=== PATIENT | male | born 1965 | race Caucasian/White ===

== ENCOUNTER 2020-03-04 13:35 | Outpatient (CLI) | payer MEDICARE, SELFPAY ==
--- NOTE | 2020-03-04 | MR_ITS ---
WS: [id number] MRI HEAD WITH CONTRAST TECHNIQUE: Sagittal T1, T2 axial, T2 axial FLAIR, axial susceptibility weighted imaging, axial diffus ion weighted images, and coronal T2 images were obtained. Pre and post-T1 axial and post T1 coronal i mages. ADC and FSPGR images. CLINICAL INFORMATION: HEADACHE COMPARISON: CT December 15, 2013 and MRI August 07, 2013 FINDINGS: No evidence of restricted diffusion to suggest acute ischemia. Ventricular system and basal cisterns are patent.Moderate patchy supratentorial white matter changes can be seen with hypertension, diabete s, migraine headaches, and small vessel disease. Nothing specific for demyelinating disease. Corpus c allosum appears normal. No significant corpus callosal atrophy. White matter changes slightly progres sed since 2010 and 2012. Normal posterior fossa. Normal vascular flow voids at the skull base. Paranasal sinuses are well aera cami. Partial opacification of the mastoid air cells bilaterally appears chronic and unchanged since t he prior examinations. Normal visualized posterior nasopharynx. Mild parenchymal volume loss minimally progressed since 2010. No hemosiderin on the susceptibility we ighted images. No abnormal gadolinium enhancement. Normal optic chiasm and pituitary infundibulum. No rmal visualized dural venous sinuses. Normal optic chiasm and pituitary infundibulum. Cavernous sinus es and Meckel's cave normal in appearance. Temporal lobes and hippocampal formations are normal in ap pearance. No other significant findings. MR/MR head wo/w con [id number] IMPRESSION: 1. No evidence of restricted diffusion to suggest acute ischemia. 2. Mild to moderate supratentorial white matter changes can be seen with hyper tension, diabetes, small vessel disease, and migraine headaches. 3. White matter changes slightly progressed since 2010 with minimal progressio n of parenchymal volume loss. 4. Temporal lobes and hippocampal formations are normal. 5. No abnormal gadolinium enhancement. 6. Chronic opacification mastoid air cells bilaterally appears unchanged.
== END 2020-03-04 13:36 | disposition home or self-care (01) ==
LOC: RADWPI 13:43
PROVIDERS: Family Provider Family Medicine; PCP Family Medicine; Visit Provider Family Medicine
DX: R51 Headache (principal); R90.82 White matter disease, unspecified
CPT/HCPCS: 70553; A9579

== ENCOUNTER → 2020-07-23 15:36 | Outpatient (BNVA) | payer MEDICARE, SELFPAY | PROVIDERS: Family Provider Family Medicine; PCP Family Medicine; Visit Provider Nurse Practitioner Family | DX: Z11.59 Encounter for screening for other viral diseases (principal); J06.9 Acute upper respiratory infection, unspecified | CPT/HCPCS: 87635 ==

== ENCOUNTER 2021-08-12 17:01 | Emergency (ER) | payer MEDICARE, MEDICAID, SELFPAY ==
[2021-08-12] VITALS (9 sets, daily range): BP systolic 175–212; BP diastolic 76–113; PULSE 56–65; RESP 15–18; TEMP 36.7; O2SAT 96–98; BMI 27.4
--- NOTE | 2021-08-12 17:33 | W.ED.ABDPA2 ---
Documented by User: Stna Renee MD 08/15/21 17:27 HPI - Abdominal Pain General: Chief Complaint: Abdominal Pain Stated Complaint: Pain from Surgery today having stones taken out Time Seen by Provider: 08/12/21 17:33 History of Present Illness: HPI narrative: Mr. Severino is a 56-year-old gentleman with history of recurrent nephrolithiasis who presents emergency department due to postoperative concern. Earlier today, at [facility] in [place] the patient had lithotripsy performed with ureteral stent placed. He reports being in manageable pain postoperatively however when he left his pain started to increase on the drive home. He currently endorses sharp stabbing radiating pain that is severe in intensity and unrelenting. He otherwise denies changes in health prior to this procedure. He denies prior severe pain associated with stent. No other significant exacerbating or alleviating conditions reported. Review of Systems General: Reports: 10 or more systems reviewed and unremarkable except in HPI and below Physical Exam Narrative: EXAM NARRATIVE: GENERAL/CONSTITUTIONAL -mildly ill-appearing. Distress due to pain Eyes - PERRL, no conjunctival injection ENMT - Atraumatic external nose and ears. Moist mucous membranes NECK - supple. trachea midline CARDIOVASCULAR - regular rate and rhythm. RESPIRATORY -clear to auscultation bilaterally. ABDOMEN/GI -tenderness to palpation of the right abdomen. No evidence of rigidity or surgical abdomen. MSK - Extremities without obvious deformity or tenderness to palpation SKIN - Warm, Dry NEURO - alert and appropriately oriented. Moves all extremities equally. Course ED course: - Patient was seen and evaluated by me at bedside - Patient placed on cardiac monitors, IV access obtained - Initial evaluation notable for distress due to pain. -Symptom treatment ordered -Patient care handed off to overnight ED physician Dr. Smalls pending results of laboratory studies and imaging. Plan disposition based on work-up. Vital Signs: Vital signs: Vital Signs Temperature 98.0 F 08/12/21 17:17 Pulse Rate 59 L 08/12/21 20:32 Respiratory Rate 18 08/12/21 20:32 Blood Pressure 179/90 08/12/21 20:32 Pulse Oximetry 98 08/12/21 20:32 MDM - Abdominal Pain Medical Records: Attestation: I reviewed the patient's medical records. Lab Data: Attestation: I reviewed the patient's lab results. Labs: Lab Results 08/12/21 08/12/2108/12/21 17:40 17:40 18:50 WBC 12.0 10^3/uL H 10 ^3/uL (4.0-10.0) RBC 4.87 10^6/uL 10^6 /uL (4.1-5.3) Hgb 14.5 g/dL g/dL (11.7-16.6) Hct 43.0 % % (42.0-52.0) MCV 88.3 fl fl (80-94) MCH 29.8 pg pg (28.0-34.0) MCHC 33.7 g/dL g/dL (30.0-36.0) RDW 12.5 % % (12.1-15.1) Plt Count 281 10^3/cmm 10^3 /cmm (130-400) MPV 10.2 fL fL (7.4-10.4) Neut % (Auto) 91.2 % % Lymph % (Auto) 5.4 % % Morrill % (Auto) 2.8 % % Eos % (Auto) 0.0 % % Baso % (Auto) 0.2 % % Neut # (Auto) 10.89 10^3/uL H 1 0^3/uL (1.8-7.7) Lymph # (Auto) 0.7 10^3/uL L 10^ 3/uL (0.8-4.8) Morrill # (Auto) 0.3 10^3/uL 10^3/ uL (0.2-0.9) Eos # (Auto) 0.0 10^3/uL 10^3/ uL (0.0-0.8) Baso # (Auto) 0.0 10^3/uL 10^3/ uL (0.0-0.1) Nucleated RBC % (a uto) 0 % % Nucleated RBCs # 0.0 /100WBC /100W BC Sodium 141 mmol/L mmol/L (136-145) Potassium 3.7 mmol/L mmol/L (3.5-5.1) Chloride 99 mmol/L mmol/L (98-107) Carbon Dioxide 29 mmol/L mmol/L (22-29) Anion Gap 16.7 (5-19) BUN 13 mg/dL mg/dL (6-20) Creatinine 0.6 mg/dL L mg/dL (0.7-1.2) GFR Calculation 140.4 mL/min H mL /min (90-130) Glucose 121 mg/dL H mg/dL (65-115) Calculated Osmolal ity 293 mOsm/kg mOsm/ kg (285-295) Calcium 9.2 mg/dL mg/dL (8.5-10.5) Total Bilirubin 0.4 mg/dL mg/dL (0.15-1.2) AST 17 U/L U/L (0-40) ALT 14 U/L U/L (0-41) Alkaline Phosphata se 55 IU/L IU/L (40-130) Total Protein 7.2 g/dL g/dL (6.6-8.7) Albumin 4.6 g/dL g/dL (3.5-5.2) Globulin 2.6 g/dL g/dL (1.3-4.6) Urine Color Red (Yellow) Urine Appearance Cloudy (CLEAR) Urine pH 8 H (5-7) Ur Specific Gravit y 1.010 (1.005-1.030) Urine Protein 2+ H (Negative) Urine Glucose (UA) 1+ H (Normal) Urine Ketones Negative (Negative) Urine Blood 3+ H (Negative) Urine Nitrate Positive H (Negative) Urine Bilirubin Neg (Negative) Prot Sulfosalicyli c Acd Negative (Negative) Urine Urobilinogen Norm mg/dL mg/dL (Negative) Ur Leukocyte Giovanna ase 1+ H (Negative) Urine RBC Too numerous to c nt /hpf H /hpf (0-2) Urine WBC 0-4 /hpf H /hpf (0-5) Ur Squamous Epith Cells 0-4 /hpf H /hpf (0-5) Amorphous Sediment Not Reportable Urine Bacteria Trace /hpf /hpf (NONE) Urine Mucus Trace /hpf /hpf Discharge Plan Discharge Patient Disposition: Home Clinical Impression: Acute right flank pain Condition: Stable Prescriptions: No Action Unable to Assess RF: 0 Discharge Orders: Discharge ED (Routine); Ordered 08/12/21 Ordered By: Mary Jane Smalls Referrals: Keyanna Reich MD [Primary Care Provider] - Discharge Diet: Advance as tolerated Discharge Activity: Resume usual activity Patient Instructions: Flank Pain (ED), Opioid Safety Coding Level of Care Code ED Diplomatic Courier for Chg Fwd Documented by User: Mary Jane Smalls MD 08/12/21 20:09 HPI - Abdominal Pain General: Chief Complaint: Abdominal Pain Stated Complaint: Pain from Surgery today having stones taken out Time Seen by Provider: 08/12/21 17:33 Course Vital Signs: Vital signs: Vital Signs Temperature 98.0 F 08/12/21 17:17 Pulse Rate 59 L 08/12/21 20:32 Respiratory Rate 18 08/12/21 20:32 Blood Pressure 179/90 08/12/21 20:32 Pulse Oximetry 98 08/12/21 20:32 MDM - Abdominal Pain MDM Narrative: Medical decision making narrative: Patient presents with flank pain after a cystoscopy with stent placement today. He is well-appearing here his pain is much improved and is resolved after pain meds. I did speak to the urologist who would perform the procedure went over the lab findings and CT findings and he feels he is stable for discharge will follow him up next week patient is already on antibiotics and pain meds I informed him if his pain worsens or he develops fever he is to return immediately. He understands agrees to plan. Lab Data: Labs: Lab Results 08/12/21 08/12/21 08/12/21 17:40 17:40 18:50 WBC 12.0 10^3/uL H 10 ^3/uL (4.0-10.0) RBC 4.87 10^6/uL 10^6 /uL (4.1-5.3) Hgb 14.5 g/dL g/dL (11.7-16.6) Hct 43.0 % % (42.0-52.0) MCV 88.3 fl fl (80-94) MCH 29.8 pg pg (28.0-34.0) MCHC 33.7 g/dL g/dL (30.0-36.0) RDW 12.5 % % (12.1-15.1) Plt Count 281 10^3/cmm 10^3 /cmm (130-400) MPV 10.2 fL fL (7.4-10.4) Neut % (Auto) 91.2 % % Lymph % (Auto) 5.4 % % Morrill % (Auto) 2.8 % % Eos % (Auto) 0.0 % % Baso % (Auto) 0.2 % % Neut # (Auto) 10.89 10^3/uL H 1 0^3/uL (1.8-7.7) Lymph # (Auto) 0.7 10^3/uL L 10^ 3/uL (0.8-4.8) Morrill # (Auto) 0.3 10^3/uL 10^3/ uL (0.2-0.9) Eos # (Auto) 0.0 10^3/uL 10^3/ uL (0.0-0.8) Baso # (Auto) 0.0 10^3/uL 10^3/ uL (0.0-0.1) Nucleated RBC % (a uto) 0 % % Nucleated RBCs # 0.0 /100WBC /100W BC Sodium 141 mmol/L mmol/L (136-145) Potassium 3.7 mmol/L mmol/L (3.5-5.1) Chloride 99 mmol/L mmol/L (98-107) Carbon Dioxide 29 mmol/L mmol/L (22-29) Anion Gap 16.7 (5-19) BUN 13 mg/dL mg/dL (6-20) Creatinine 0.6 mg/dL L mg/dL (0.7-1.2) GFR Calculation 140.4 mL/min H mL /min (90-130) Glucose 121 mg/dL H mg/dL (65-115) Calculated Osmolal ity 293 mOsm/kg mOsm/ kg (285-295) Calcium 9.2 mg/dL mg/dL (8.5-10.5) Total Bilirubin 0.4 mg/dL mg/dL (0.15-1.2) AST 17 U/L U/L (0-40) ALT 14 U/L U/L (0-41) Alkaline Phosphata se 55 IU/L IU/L (40-130) Total Protein 7.2 g/dL g/dL (6.6-8.7) Albumin 4.6 g/dL g/dL (3.5-5.2) Globulin 2.6 g/dL g/dL (1.3-4.6) Urine Color Red (Yellow) Urine Appearance Cloudy (CLEAR) Urine pH 8 H (5-7) Ur Specific Gravit y 1.010 (1.005-1.030) Urine Protein 2+ H (Negative) Urine Glucose (UA) 1+ H (Normal) Urine Ketones Negative (Negative) Urine Blood 3+ H (Negative) Urine Nitrate Positive H (Negative) Urine Bilirubin Neg (Negative) Prot Sulfosalicyli c Acd Negative (Negative) Urine Urobilinogen Norm mg/dL mg/dL (Negative) Ur Leukocyte Giovanna ase 1+ H (Negative) Urine RBC Too numerous to c nt /hpf H /hpf (0-2) Urine WBC 0-4 /hpf H /hpf (0-5) Ur Squamous Epith Cells 0-4 /hpf H /hpf (0-5) Amorphous Sediment Not Reportable Urine Bacteria Trace /hpf /hpf (NONE) Urine Mucus Trace /hpf /hpf Imaging Data ^: CT Abd/Pel: Attestation: I personally reviewed and interpreted this imaging study as follows: Radiologist's impression: [address] [address] [address] Scan Report Signed Patient: Rodolfo Severino Unit #: [id number] : 1965 Age/Sex: 56 / M ADM Date: 08/12/21 Loc: ER Room/Bed: Attending Dr: Ordering Provider/Ordering MD: Stan Renee MD Date of Service: 08/12/21 Procedure(s): CT abdomen pelvis con [id number] Accession Number(s): [id number] Report Number: [id number] PROCEDURE INFORMATION: Exam: CT Abdomen And Pelvis Without Contrast Exam date and time: 08/12/2021 5:37 PM Age: 56 years old Clinical indication: Abdominal pain; Prior surgery; Surgery type: Bilat hip, spine, RT ureteral stent placed today, appy; Additional info: Stent placed today, severe pain, eval for complication TECHNIQUE: Imaging protocol: Computed tomography of the abdomen and pelvis without contrast. Radiation optimization: All CT scans at this facility use at least one of these dose optimization techniques: automated exposure control; mA and/or kV adjustment per patient size (includes targeted exams where dose is matched to clinical indication); or iterative reconstruction. COMPARISON: CT Abdomen/Pelvis Renal [id number] 10/26/2017 4:27 PM RADIATION DOSE METRICS: Total DLP (mGy-cm): 1291.65 FINDINGS: Liver: Normal. No mass. Gallbladder and bile ducts: Normal. No calcified stones. No ductal dilation. Pancreas: Normal. No ductal dilation. Spleen: Normal. No splenomegaly. Adrenal glands: Normal. No mass. Kidneys and ureters: Right ureteral stent seen in place with some apparent blood products seen about the distal portion of the stent in the urinary bladder and moderate hydronephrosis and hydroureter. Additionally some air is seen in the right renal collecting system, perhaps related to stent placement, infection would also be a consideration. Right perinephric and periureteral edema is also present, perhaps reflecting underlying infection or related to stent placement. Bilateral nonobstructing renal calyceal stones. Right kidney lower pole 12 mm probable hemorrhagic cyst. Several left kidney cysts Stomach and bowel: Unremarkable. No obstruction. No mucosal thickening. Appendix: No evidence of appendicitis. Intraperitoneal space: Unremarkable. No free air. No significant fluid collection. Vasculature: Unremarkable. No abdominal aortic aneurysm. Lymph nodes: Unremarkable. No enlarged lymph nodes. Urinary bladder: Unremarkable as visualized. Reproductive: Unremarkable as visualized. Bones/joints: Lumbar spine and sacroiliac joint surgical hardware. Soft tissues: Unremarkable. Other findings: Constipation. CT/CT abdomen pelvis wo con [id number] IMPRESSION: 1. Right ureteral stent seen in place with some apparent blood products seen about the distal portion of the stent in the urinary bladder and moderate hydronephrosis and hydroureter. Additionally some air is seen in the right renal collecting system, perhaps related to stent placement, infection would also be a consideration. 2. Right perinephric and periureteral edema is also present, perhaps reflecting underlying infection or related to stent placement. 3. Bilateral nonobstructing renal calyceal stones. 4. Right kidney lower pole 12 mm probable hemorrhagic cyst. 5. Several left kidney cysts 6. Constipation. 7. Lumbar spine and sacroiliac joint surgical hardware. COMMENTS: Consistent with the [employer]'s Incidental Findings Committee white paper (J Am Ata Radiol 2018): Any incidental renal lesion less than 1 cm or classified as too small to characterize, or any incidental cystic renal lesion characterized as simple-appearing, is likely benign. No follow-up imaging is recommended for these lesions per consensus recommendations based on imaging criteria. Radiation Dose CTDIVOL = (mGy): DLP = 1291.65 (mGy-cm) Dictated By: Rodolfo Cohen MD Signed By: Rodolfo Cohen MD Signed Date/Time: 08/12/211844 DD/ 033 Discharge Plan Discharge Patient Disposition: Home Clinical Impression: Acute right flank pain Condition: Stable Prescriptions: No Action Unable to Assess RF: 0 Discharge Orders: Discharge ED (Routine); Ordered 08/12/21 Ordered By: Mary Jane Smalls Referrals: Keyanna Reich MD [Primary Care Provider] - Discharge Diet: Advance as tolerated Discharge Activity: Resume usual activity Patient Instructions: Flank Pain (ED), Opioid Safety Coding Level of Care Code ED Diplomatic Courier for Maria Dolores Mckeon
--- NOTE | 2021-08-12 17:37 | CTR_ITS ---
PROCEDURE INFORMATION: Exam: CT Abdomen And Pelvis Without Contrast Exam date and time: 08/12/2021 5:37 PM Age: 56 years old Clinical indication: Abdominal pain; Prior surgery; Surgery type: Bilat hip, spine, RT ureteral stent placed today, appy; Additional info: Stent placed today, severe pain, eval for complication TECHNIQUE: Imaging protocol: Computed tomography of the abdomen and pelvis without contrast. Radiation optimization: All CT scans at this facility use at least one of these dose optimization techniques: automated exposure control; mA and/or kV adjustment per patient size (includes targeted exams where dose is matched to clinical indication); or iterative reconstruction. COMPARISON: CT Abdomen/Pelvis Renal [id number] 10/26/2017 4:27 PM RADIATION DOSE METRICS: Total DLP (mGy-cm): 1291.65 FINDINGS: Liver: Normal. No mass. Gallbladder and bile ducts: Normal. No calcified stones. No ductal dilation. Pancreas: Normal. No ductal dilation. Spleen: Normal. No splenomegaly. Adrenal glands: Normal. No mass. Kidneys and ureters: Right ureteral stent seen in place with some apparent blood products seen about the distal portion of the stent in the urinary bladder and moderate hydronephrosis and hydroureter. Additionally some air is seen in the right renal collecting system, perhaps related to stent placement, infection would also be a consideration. Right perinephric and periureteral edema is also present, perhaps reflecting underlying infection or related to stent placement. Bilateral nonobstructing renal calyceal stones. Right kidney lower pole 12 mm probable hemorrhagic cyst. Several left kidney cysts Stomach and bowel: Unremarkable. No obstruction. No mucosal thickening. Appendix: No evidence of appendicitis. Intraperitoneal space: Unremarkable. No free air. No significant fluid collection. Vasculature: Unremarkable. No abdominal aortic aneurysm. Lymph nodes: Unremarkable. No enlarged lymph nodes. Urinary bladder: Unremarkable as visualized. Reproductive: Unremarkable as visualized. Bones/joints: Lumbar spine and sacroiliac joint surgical hardware. Soft tissues: Unremarkable. Other findings: Constipation. CT/CT abdomen pelvis wo con [id number] IMPRESSION: 1. Right ureteral stent seen in place with some apparent blood products seen about the distal portion of the stent in the urinary bladder and moderate hydronephrosis and hydroureter. Additionally some air is seen in the right renal collecting system, perhaps related to stent placement, infection would also be a consideration. 2. Right perinephric and periureteral edema is also present, perhaps reflecting underlying infection or related to stent placement. 3. Bilateral nonobstructing renal calyceal stones. 4. Right kidney lower pole 12 mm probable hemorrhagic cyst. 5. Several left kidney cysts 6. Constipation. 7. Lumbar spine and sacroiliac joint surgical hardware. COMMENTS: Consistent with the [employer]'s Incidental Findings Committee white paper (J Am Ata Radiol 2018): Any incidental renal lesion less than 1 cm or classified as too small to characterize, or any incidental cystic renal lesion characterized as simple-appearing, is likely benign. No follow-up imaging is recommended for these lesions per consensus recommendations based on imaging criteria. Radiation Dose CTDIVOL = (mGy): DLP = 1291.65 (mGy-cm)
[2021-08-12] MEDS: HYDROmorphone 1 mg/mL INJ 1 mL IVP ×2 (17:45→19:06)
[2021-08-12] MEDS: ketorolac 30 mg/mL INJ 15 MG IVP ×2 (17:46→20:16)
[2021-08-12] MEDS: ondansetron 2 mg/ML SDV 2 mL 4 MG IVP (17:46)
[2021-08-12 19:11] LABS: Basophils % 0.2 %; Hemoglobin 14.5 g/dL (11.7-16.6); Lymphocytes # 0.7 10^3/uL (0.8-4.8); Lymphocytes % 5.4 %; Mean Corpuscular HGB Conc 33.7 g/dL (30.0-36.0); Mean Corpuscular Hemoglobin 29.8 pg (28.0-34.0); Mean Corpuscular Volume 88.3 fl (80-94); Mean Platelet Volume 10.2 fL (7.4-10.4); Monocytes # 0.3 10^3/uL (0.2-0.9); Monocytes % 2.8 %; Neutrophils # 10.89 10^3/uL (1.8-7.7); Neutrophils % 91.2 %; Nucleated Red Blood Cells % 0 %; Platelet Count 281 10^3/cmm (130-400); Red Blood Count 4.87 10^6/uL (4.1-5.3); Red Cell Distribution Width 12.5 % (12.1-15.1)
[2021-08-12 19:22] LABS: Alanine Aminotransferase 14 U/L (0-41); Albumin Level 4.6 g/dL (3.5-5.2); Alkaline Phosphatase 55 IU/L (40-130); Anion Gap 16.7 (5-19); Aspartate Amino Transferase 17 U/L (0-40); Blood Urea Nitrogen 13 mg/dL (6-20); Calcium 9.2 mg/dL (8.5-10.5); Carbon Dioxide 29 mmol/L (22-29); Chloride 99 mmol/L (98-107); Globulin 2.6 g/dL (1.3-4.6); Glomerular Filtration Rate 140.4 mL/min (90-130); Glucose 121 mg/dL (65-115); Osmolality Calculated 293 mOsm/kg (285-295); Potassium 3.7 mmol/L (3.5-5.1); Sodium 141 mmol/L (136-145); Total Bilirubin 0.4 mg/dL (0.15-1.2); Total Protein 7.2 g/dL (6.6-8.7)
[2021-08-12 19:30] LABS: Urine Appearance Cloudy (CLEAR); Urine Color Red (Yellow)
[2021-08-12 19:31] LABS: Add Urine Microscopic? YES; Bilirubin Urine Neg (Negative); Blood Urine 3+ (Negative); Glucose Urine UA 1+ (Normal); Ketones Urine Negative (Negative); Leukocyte Esterase Urine 1+ (Negative); Nitrate Urine Positive (Negative); Protein Urine 2+ (Negative); Sulfosalicylic Acid Urine Negative (Negative); Urobilinogen Urine Norm (Negative); pH Urine 8 (5-7)
[2021-08-12 19:32] LABS: RBC Urine TOO NUMEROUS TO CNT /hpf (0-2); Squamous Epithelial Cell Urine 0-4 /hpf (0-5); WBC Urine 0-4 /hpf (0-5)
[2021-08-12 19:33] LABS: Add Urine Culture? No; Bacteria Urine TRACE /hpf; Mucus Urine TRACE /hpf
== END 2021-08-12 20:44 | disposition home or self-care (01) ==
PROVIDERS: Emergency Medicine; Emergency Provider Emergency Medicine; PCP Family Medicine
DX: R10.9 Unspecified abdominal pain (principal); Z87.442 Personal history of urinary calculi
CPT/HCPCS: 74176; 80053; 81001; 85025; 96374; 96375; 96376; 99284; J1170; J1885; J2405

== ENCOUNTER 2021-10-05 07:52 | Outpatient (CLI) | payer MEDICARE, MEDICAID, SELFPAY ==
--- NOTE | 2021-10-05 08:08 | MR_ITS ---
WS: [id number] MRI CERVICAL SPINE NONCONTRAST HISTORY: CHRONIC NECK PAIN/CHRONIC HEADACHES COMPARISON: MRI 01/28/[address] 07/11/2017 Technique: Multiplanar, multisequence noncontrast imaging of the cervical spine. Very mild straightening of the normal cervical lordosis. Prior anterior cervical fusion with interbod y spacer at C6-7. No fracture or marrow edema. Signal within the cervical cord is normal. Visualized posterior fossa is unremarkable. Craniocervical junction, C1 and C2 relationship, odontoid process and soft tissues are normal. C2-C3: Normal. C3-C4: Moderate osteophytic ridging around the vertebral bodies and annular disc bulging. No focal pr otrusion. There is mild deformity and effacement of the ventral thecal sac. Small amount of CSF remai ns surrounding the thecal sac. There is posterior displacement of the RIGHT nerve roots due to disc a nd osteophyte. Mild central and LEFT foraminal stenosis with moderate RIGHT foraminal stenosis. C4-C5: Mild osteophytic ridging with no disc protrusion. Mild bilateral foraminal stenosis and mild f acet arthritis. C5-C6: Disc level is partially obscured by artifact from the fusion hardware. There is at least mild disc bulging and osteophytic ridging. Mild central and foraminal stenosis. Disc protrusions and the f oramina cannot be excluded. Mild facet arthritis. C6-C7: Artifact continues partially obscuring the disc level. Mild central and foraminal stenosis. Di sc protrusions and the foramina cannot be excluded. C7-T1: Normal. Paraspinal soft tissue are normal. MR/MR cervical spin wo con* [id number] IMPRESSION: 1. Prior anterior cervical fusion with interbody spacer at the C6-7 level. Baljinder madeline is obscuring detail at the C5-6 and C6-7 disc levels. 2. Moderate osteophytic ridging at C3-4 encroaching upon the ventral thecal sa c resulting in mild central and LEFT foraminal stenosis and moderate RIGHT fora abdias stenosis predominantly due to bony hypertrophy. 3. No high-grade stenosis. No focal disc protrusions are identified.
== END 2021-10-05 07:53 | disposition home or self-care (01) ==
PROVIDERS: PCP Family Medicine; Visit Provider Family Medicine
DX: M54.2 Cervicalgia (principal); R51.9 Headache, unspecified; M25.78 Osteophyte, vertebrae; M43.22 Fusion of spine, cervical region
CPT/HCPCS: 72141

== ENCOUNTER 2021-10-08 09:25 | Outpatient (CLI) | payer MEDICARE, MEDICAID, SELFPAY ==
--- NOTE | 2021-10-08 09:49 | MR_ITS ---
WS: [id number] MRI left shoulder, 10/08/2021 Clinical Data: LEFT SHOULDER PAIN Comparison: None. Findings: There is slight increased signal in the substance of the rotator cuff which could indicate a partial tear. No retraction of the supraspinatus is seen. Acromioclavicular joint shows mild osteoarthritis w ith no impingement. The glenoid labrum is intact with no tear or displacement. The biceps tendon resides within the bicipital groove and there is no displacement evidence of tendin itis or fluid in the tendon sheath. MR/MR shoulder LT con* [id number] Impression: 1. Slight increase in signal and substance of the left rotator cuff cuff which could indicate a partial tear. 2. Osteoarthritis of the left AC joint.
== END 2021-10-08 09:26 | disposition home or self-care (01) ==
PROVIDERS: PCP Family Medicine; Visit Provider Family Medicine
DX: M19.012 Primary osteoarthritis, left shoulder (principal)
CPT/HCPCS: 73221

== ENCOUNTER → 2021-12-13 17:04 | Outpatient (BNVA) | payer MEDICARE, MEDICAID, SELFPAY | PROVIDERS: PCP Family Medicine; Visit Provider Surgery | DX: Z01.818 Encounter for other preprocedural examination (principal) | CPT/HCPCS: 87635 ==

== ENCOUNTER → 2022-01-11 15:29 | Outpatient (BNVA) | payer MEDICARE, MEDICAID, SELFPAY | PROVIDERS: PCP Family Medicine; Visit Provider Surgery | DX: Z01.818 Encounter for other preprocedural examination (principal); Z20.822 Contact with and (suspected) exposure to COVID-19 | CPT/HCPCS: 87635 ==

== ENCOUNTER 2022-01-14 08:00 | Day surgery (SDC) | payer MEDICARE, MEDICAID, SELFPAY ==
[2021-12-14 11:10] VITALS: BMI 30.7
[2022-01-12 10:20] VITALS: BMI 30.7
[2022-01-14 08:30] VITALS: BP 167/102; PULSE 65; RESP 18; TEMP 36.4; O2SAT 100
[2022-01-14] MEDS: sodium chloride 0.9% 1,000 ML 30 ML IV (08:37)
--- NOTE | 2022-01-14 08:37 | ANES.PREANE2 ---
Pre-Anesthetic Assessment Height/Weight: Height 1.65 m Weight 83.915 kg Temp Pulse Resp BP Pulse Ox 97.6 F 65 18 167/102 100 01/14/22 08:30 01/14/22 08:30 01/14/22 08:30 01/14/22 08:30 01/14/22 08:30 Preop Diagnosis: History of colon polyps, colon cancer and blood in stool Operation Date: 12/16/21 15:15 Proposed Procedures p Colonoscopy 24702 Z86.010 K92.1(Not Applicable) - Danny Hugo MD Operation Date: 01/14/22 09:30 Proposed Procedures p Colonoscopy(Not Applicable) - Danny Hugo MD Familial anesthetic complications: None Was Beta James taken within 24 hours: N/A Was Clonidine taken within 24 hours: N/A Last intake: Intake Last Liquid Date 01/13/22 Last Liquid Time 23:00 Last Solid Date 01/12/22 Last Solid Time 15:00 Social No alcohol and No tobacco Exam alert, oriented x 3, clear to auscultation bilaterally and regular rate & rhythm Airway Submandibular: within normal limits Cervical ROM: within normal limits Mallampati: Class II Dentition: chipped Comments: Comments: Missing several Metabolic Morbid Obesity Musc/skel Lower Back Pain Chronic pain/opioid Anesthetic Plan ASA status: 3 Anesthesia: MAC Medications/Allergies Home Medications Medication Instructions Recorded Confirmed Last Taken Type cholecalciferol (vitamin D3) 25 25 mcg PO DAILY 09/27/21 01/12/22 Unknown History mcg (1,000 unit) capsule cyclobenzaprine 5 mg tablet 5 mg PO TID PRN 09/27/21 01/12/22 Unknown History fentanyl 12 mcg/hr transdermal 1 patch TRANSDERMAL Q72H 09/27/21 01/12/22 Unknown History patch gabapentin 100 mg capsule 100 mg PO DAILY 09/27/21 01/12/22 Unknown History ondansetron HCl 4 mg tablet 4 mg PO Q8H PRN 09/27/21 01/12/22 Unknown History (Zofran) oxycodone-acetaminophen 2.5 mg-325 1 tab PO Q8H PRN 09/27/21 01/12/22 Unknown History mg tablet (Percocet) sumatriptan succinate 25 mg tablet 25 mg PO Q2H PRN 09/27/21 01/12/22 Unknown History tramadol 50 mg tablet 50 mg PO Q6H PRN 09/27/21 01/12/22 Unknown History Allergies Allergy/AdvReac Type Severity Reaction Status Date / Time codeine Allergy ADR-Itching Verified 12/14/21 11:00 Current Medications Generic Name Dose Route Start Last Admin Trade Name Freq PRN Reason Stop Dose Admin Sodium Chloride 1,000 mls @ 30 mls/hr 01/14/22 08:15 01/14/22 08:37 Sodium Chloride 0.9% IV 01/15/22 08:14 30 mls/hr .Q24H BONITA Administration PFSH Anesthesia Medical History Family history of colon cancer in mother Family History Other CAD (coronary artery disease) Cancer Hypertension Denies family history of Diabetes Dementia Chronic kidney disease (CKD) Lung disease Stroke Social History Smoking and tobacco status: never smoked Second hand smoke exposure: No Alcohol intake: never Lives independently: Yes Household members: spouse and children Marital status: Data Anesthesia Cardiac Studies: No Data to Display
--- NOTE | 2022-01-14 09:46 | P.HP_ITS ---
Same Day Surgery H&P Indication for Procedure/HPI DATE OF PROCEDURE: January 14, 2022 CHIEF COMPLAINT/INDICATIONFOR SURGICAL PROCEDURE: Colon polyps PREOP DIAGNOSIS: History of colon polyps, colon cancer and blood in stool PLANNED PROCEDURE: Operation Date: 12/16/21 15:15 Proposed Procedures p Colonoscopy 31290 Z86.010 K92.1(Not Applicable) - Danny Hugo MD Operation Date: 01/14/22 09:30 Proposed Procedures p Colonoscopy(Not Applicable) - Danny Hugo MD 09/27/21 This is a pleasant 56 years old gentleman referred to my practice with history of colon polyps,he did have a colonoscopy before 5 years and he reports that he has intermittent bleeding per rectum.? Also patient gives history of colon cancer per his mom that she at the age of 7272 years old.? Patient denies history of nonintentional weight loss.? He is referred to my practice for surveillance colonoscopy 01/14/22 Patient comes today for patient comes today for surveillance colonoscopy ROS All systems all systems have been reviewed negative except as per the above or per problem Medications/Allergies* Home Medications Medication Instructions Recorded Confirmed Type cholecalciferol (vitamin D3) 25 25 mcg PO DAILY 09/27/21 01/12/22 History mcg (1,000 unit) capsule cyclobenzaprine 5 mg tablet 5 mg PO TID PRN 09/27/21 01/12/22 History fentanyl 12 mcg/hr transdermal 1 patch TRANSDERMAL Q72H 09/27/21 01/12/22 History patch gabapentin 100 mg capsule 100 mg PO DAILY 09/27/21 01/12/22 History ondansetron HCl 4 mg tablet 4 mg PO Q8H PRN 09/27/21 01/12/22 History (Zofran) oxycodone-acetaminophen 2.5 mg-325 1 tab PO Q8H PRN 09/27/21 01/12/22 History mg tablet (Percocet) sumatriptan succinate 25 mg tablet 25 mg PO Q2H PRN 09/27/21 01/12/22 History tramadol 50 mg tablet 50 mg PO Q6H PRN 09/27/21 01/12/22 History Allergies/Adverse Reactions Allergy/AdvReac Type Severity Reaction Status Date / Time codeine Allergy ADR-Itching Verified 01/14/22 09:47 Current Medications: Generic Name Dose Route Start Last Admin Trade Name Freq PRN Reason Stop Dose Admin Sodium Chloride 1,000 mls @ 30 mls/hr 01/14/22 08:15 01/14/22 08:37 Sodium Chloride 0.9% IV 01/15/22 08:14 30 mls/hr .Q24H BONITA Administration Pertinent History/Comorbid Conditions* Medical History (Updated 09/27/21 @ 09:55 by Danny Hugo MD) Family history of colon cancer in mother Family History (Updated 09/27/21 @ 09:08 by Farnaz Dudley) CAD (coronary artery disease) Cancer Hypertension Denies family history of Diabetes Dementia Chronic kidney disease (CKD) Lung disease Stroke Social History Smoking and tobacco status: never smoked Second hand smoke exposure: No Alcohol intake: never Lives independently: Yes Household members: spouse and children Marital status: Pertinent Exam Findings alert, oriented x 3, regular rate & rhythm and procedure specific exam findings (Abdominal examination nontender nondistended soft) Recommendations Surgery/Procedure today (Surveillance colonoscopy ) Coding Level of Care Code Acute Atmospheric Sciences Professor for Maria Dolores Mckeon
[2022-01-14 10:14] VITALS: BP 100/62; PULSE 65; RESP 16; TEMP 36.1; O2SAT 98
[2022-01-14 10:27] VITALS: BP 101/74; PULSE 61; RESP 16; TEMP 36.2; O2SAT 100
[2022-01-14 10:40] VITALS: BP 133/77; PULSE 53; RESP 18; O2SAT 99
--- NOTE | 2022-01-14 17:38 | ANE.PACU2 ---
Inpatient post-anesthesia follow up: Airway intact: Yes Vital signs: Temperature 97.1 F Pulse Rate 53 Respiratory Rate 18 Blood Pressure 133/77 Pulse Oximetry 99 Oxygen Delivery Me thod Room Air Oxygen Flow Rate Fraction of Inspir ed Oxygen Hydration adequate: Yes Nausea and vomiting: No Pain level: 1 Mental status: Baseline
== END 2022-01-14 10:55 | disposition home or self-care (01) ==
PROVIDERS: PCP Family Medicine; Visit Provider Surgery
PROC: 0DJD8ZZ Inspection of Lower Intestinal Tract, Via Natural or Artificial Opening Endoscopic (ICD-10-PCS; CPT 45378; principal; 2022-01-14 09:30)
DX: K92.1 Melena (principal); Z86.010 Personal history of colon polyps; D12.0 Benign neoplasm of cecum; E66.01 Morbid (severe) obesity due to excess calories; Z68.30 Body mass index [BMI] 30.0-30.9, adult; Z82.49 Family history of ischemic heart disease and other diseases of the circulatory system
CPT/HCPCS: 45385; 88305; J2704; J7030

== ENCOUNTER → 2022-01-31 10:26 | Outpatient (BNVA) | payer MEDICARE, MEDICAID, SELFPAY | PROVIDERS: PCP Family Medicine; Visit Provider Surgery | DX: Z09 Encounter for follow-up examination after completed treatment for conditions other than malignant neoplasm (principal); K63.5 Polyp of colon | CPT/HCPCS: 99213 ==

== ENCOUNTER 2022-10-20 08:26 | Outpatient (CLI) | payer MEDICARE, MEDICAID, SELFPAY ==
--- NOTE | 2022-10-20 | ECG_ITS ---
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 Interpretive Statements NAME OF STUDY: Exercise/Sestamibi/Sestamibi Stress Test INDICATION: Chest Pain SURGICAL CLEARANCE RESULTS TO Ric SANCHEZ PROCEDURE: The baseline electrocardiogram showed sinus bradycardia with diffuse nonspecific T wave changes. Left axis deviation.. At the baseline, the patient's blood pressure was 174/92 mm Hg with a heart rate of 51. The patient exercised for 12 minutes on a Ankit protocol. Patient attained a maximum heart rate of 146 beats per minute(88% of the maximum predicted heart rate) with a blood pressure at the peak exercise of 256/106 mm Hg. The EKG at the peak exercise revealed no significant changes. Patient did not have any chest pain or any significant arrhythmis with the exercise Sestamibi was injected 1 minute prior to the peak exercise During the recovery phase, there were no new changes. Blood pressure at the end of the recovery phase was 172/81 mm Hg with a heart rate of 68 per minute. CONCLUSION: 1. No significant EKG changes with the treadmill exercise 2. No exercise-induced chest pain or cardiac arrhythmia 3. Good exercise tolerance, attained a maximum of 13.5 METs 4. Hypertensive response to exercise 5. Sestamibi/Sestamibi perfusion results pending; see separate report. Electronically Signed On 10-20-2022 17:51:16 REGULATORY AFFAIRS INTERN by Danita Hsu M.D. [id number]
[2022-10-20 08:33] VITALS: BMI 30.7
--- NOTE | 2022-10-20 08:38 | NMCV_ITS ---
NM lyly perf SPECT r/s* [id number] Rodolfo Severino Age: 57 Gender: M : 1965 Exam Date: 10/20/2022 08:38 Ordering Phys: Keyanna Reich MD Technologist: ANIYA Muhammad Exam Location: [facility] Indications: CHEST PAIN; PRE OP FOR Monday10/25/22 STRESS TEST Please see separate stress test report in [facility] for full findings IMAGE PROTOCOL Rest/Stress 1 Exercise Day Radiopharmaceutical Dose (mCi) Administration Site Administered by Rest: Tc-99m 10.7 IV ANIYA Ceron Sestamibi Stress:Tc-99m 32.5 IV ANIYA Ceron Sestamihermes Rest: 20-Oct-2022 60 Discovery 630 Stress: 20-Oct-2022 30 Discovery 630 Radiopharmaceutical was injected at 85 % maximum heart rate. Images obtained in supine and prone position. SPECT RESULTS Technical Quality: Excellent Raw Data Analysis: Normal Image Corrections: No attenuation or motion correction applied Summed Stress Score: 3 Summed Rest Score: 2 Summed Difference Score: 1 PERFUSION FINDINGS Small area of slightly decreased tracer uptake was noted in the mid inferior and apical lateral regions. Some reversibility was noted in the mid inferior region. FUNCTIONAL RESULTS (calculated via Gated SPECT) Stress Image LV EF (%): 60 Stress EDV (mL):118 TID: 0.88 Stress ESV (mL):47 FUNCTIONAL FINDINGS: Segmental wall motion analysis revealing no gross wall motion normalities IMPRESSIONS 1. Myocardial perfusion imaging revealing small area of decreased tracer uptake in the mid inferior region with some reversibility, suggesting myocardial scarring with ischemia in the distribution of the right coronary artery. Small area of persistent decreased tracer uptake in the apical lateral region suggesting myocardial scarring versus attenuation artifact 2. Normal LV ejection fraction of 60%. 3. LV wall motion analysis revealing no gross wall motion abnormalities. 4. LV volume, upper limit of normal No similar previous studies are available for comparison Dr Danita Hsu MD FAC (Electronically Signed) Final Date: 20 October 2022 17:16 S
[2022-10-20 10:43] VITALS: BP 179/85; PULSE 76
== END 2022-10-20 08:27 | disposition home or self-care (01) ==
PROVIDERS: PCP Family Medicine; Visit Provider Family Medicine
DX: R07.9 Chest pain, unspecified (principal)
CPT/HCPCS: 36415; 78452; 93017; 96374; A9500

== ENCOUNTER → 2022-10-28 11:18 | Outpatient (BNVA) | payer MEDICARE, MEDICAID, SELFPAY | PROVIDERS: PCP Family Medicine; Visit Provider Surgery | DX: K40.90 Unilateral inguinal hernia, without obstruction or gangrene, not specified as recurrent (principal) | CPT/HCPCS: 99203 ==

== ENCOUNTER 2023-05-16 11:54 | Outpatient (CLI) | payer MEDICARE, MEDICAID, SELFPAY ==
--- NOTE | 2023-05-16 12:11 | US_ITS ---
WS: [id number] INDICATION: Enlarged lymph nodes RIGHT axilla TECHNIQUE: Ultrasound RIGHT axilla FINDINGS: Ultrasound RIGHT axilla in the area of interest. Normal-appearing lymph nodes in the RIGHT axilla largest measuring 2.5 x 1.0 x 1.0 cm with persistent fatty hilum. No significant cortical thic kening. No other suspicious findings. US/US soft tissue/extremity [id number] IMPRESSION: Normal-appearing lymph nodes RIGHT axilla described above. If persi stent concern this could be further evaluated ultrasound guided biopsy.
== END 2023-05-16 11:55 | disposition home or self-care (01) ==
PROVIDERS: PCP Family Medicine; Visit Provider Family Medicine
DX: R59.0 Localized enlarged lymph nodes (principal)
CPT/HCPCS: 76882

== ENCOUNTER 2023-07-04 16:30 | Emergency (ER) | payer MEDICARE, MEDICAID, SELFPAY ==
[2023-07-04 16:32] VITALS: BP 124/77; TEMP 36.9; BMI 28.9
--- NOTE | 2023-07-04 16:36 | ECG_ITS ---
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 Measurements Intervals Baldwin Rate: 93 P: 21 PA: 174 QRS: -36 QRSD: 111 T: 80 QT: 370 QTc: 462 Interpretive Statements SINUS RHYTHM LEFT AXIS DEVIATION [QRS AXIS < -30] PATTERN CONSISTENT WITH PULMONARY DISEASE MODERATE INTRAVENTRICULAR CONDUCTION DELAY [110+ ms QRS DURATION] VOLTAGE CRITERIA FOR LVH [MEETS CRITERIA IN ONE OF: R(aVL), S(V1), R(V5), R(V5/V6)+S(V1)] NONSPECIFIC T-WAVE ABNORMALITY No previous ECG available for comparison Electronically Signed On 07-04-2023 17:56:58 CDT by Mack Elias M.D. [id number]
[2023-07-04 16:39] VITALS: BP 124/77; PULSE 102; RESP 18; O2SAT 98
--- NOTE | 2023-07-04 17:04 | W.ED.GENADLT ---
HPI - General Adult General: Chief complaint: Syncope Stated complaint: Syncope Time Seen by Provider: 07/04/23 16:37 Source: patient Mode of arrival: EMS Limitations: no limitations History of Present Illness: This 58-year-old male was brought into the ER for evaluation following a syncopal episode while he was getting electrotherapy. Patient had a left shoulder surgery about 3 months ago from which he has recovered well but he gets electrotherapy to strenghten that left shoulder. He also has a history of right inguinal hernia repair about 3 weeks ago from which he is also recovering well. Towards the end of his electrotherapy, they turned up the machine a notch. Shortly afterwards, patient passed out. When he came to, there were people around him and he remembers one person asking him if he was okay. Patient denies chest pain, palpitations, nausea or vomiting. EMS reported that his blood pressure was low at the time they got home. Here in the ER, patient has been normotensive. He denies fever, abdominal pain or any other systemic symptoms. Patient has no prior history of seizures and no seizure activity was reported with this incident. Associated symptoms: Deny chest pain or headache(s) Review of Systems Const: Denies: chills, body aches or change in appetite Eyes: Denies: change in vision or eye discharge ENMT: Denies: throat pain, dental pain or nasal discharge Card: Denies: chest pain or lightheadedness : Denies: dysuria Musc: Denies: neck pain or back pain Neuro: Reports: other (syncope); Denies: headache(s) or weakness in extremities Psych: Denies: depression Javon/Lymph: Denies: easy bruising All/Imm: Denies: urticaria, tongue swelling or facial swelling PFSH ED PFSH: Medical History Family history of colon cancer in mother History of kidney stones Hx of nephrolithotomy with removal of calculi Sarcoidosis Surgical History History of appendectomy History of arthroscopic knee surgery left History of fusion of cervical spine x2 History of hip surgery bilat hip surgery History of kidney surgery either 8-9 surgeries History of rotator cuff surgery rt History of spinal fusion l1-s5 Hx of colonoscopy with polypectomy Family History Other CAD (coronary artery disease) Cancer Hypertension Denies family history of Diabetes Dementia Chronic kidney disease (CKD) Lung disease Stroke Social History Smoking and tobacco status: never smoked Second hand smoke exposure: No Alcohol intake: never Substance/Drug Use: never Lives independently: Yes Household members: spouse and children Marital status: Physical Exam Const: COMMON NORMALS: no acute distress, patient oriented x3, no limitations and alert HENMT: COMMON NORMALS: normocephalic HEAD & SCALP: normocephalic Eye: COMMON NORMALS: EOMs intact bilaterally Neck/C-Spine: COMMON NORMALS: full ROM and supple Chest: COMMONS NORMALS: normal inspection of the chest Resp: COMMON NORMALS: normal respiratory effort, No retractions, No use of accessory muscles and clear to auscultation bilaterally AUSCULTATION: clear to auscultation bilaterally Cardio: COMMON NORMALS: regular rate, regular rhythm and No murmurs present (Cardio) RATE: regular rate RHYTHM: regular rhythm GI: COMMON NORMALS: Normal to inspection, nondistended, normoactive bowel sounds present and non-tender OTHER: Healed surgical scars on the anterior abdomen from the recent inguinal hernia repair. : COMMON NORMALS: Yes no CVA tenderness BLADDER/KIDNEY EXAM: Yes no CVA tenderness Back/Pelvis: COMMON NORMALS: no CVA tenderness and no thoracic nor lumbar tenderness Extremity: GENERAL: Yes normal exam except as noted OTHER: Well healed surgical scar on the anterior left shoulder. Neuro: COMMON NORMALS: patient oriented x3 and no focal motor deficits SENSORIUM/ORIENTATION: Yes alert Psych: COMMON NORMALS: mental status grossly normal and cooperative Course Vital Signs: Vital signs: Vital Signs Temperature 98.5 F 07/04/23 16:32 Pulse Rate 81 07/04/23 18:37 Respiratory Rate 15 07/04/23 18:37 Blood Pressure 105/67 07/04/23 18:37 Pulse Oximetry 96 07/04/23 18:37 Oxygen Delivery Me thod Room Air 07/04/23 18:37 MDM - General Adult Medical Decision Making Medical decision making: History as above. Patient was brought in for evaluation following a syncopal episode while he was getting electrotherapy. The syncopal episode occurred shortly after the machine was tuned up a notch. On ER arrival, patient was at his baseline and exam is unremarkable. Completed blood tests including troponin are unremarkable. CT brain is negative for any acute intracranial process. No single blood pressure measured in the ER throughout his stay was low. Plan was to set him up for an outpatient Holter monitor but none is available in the ER. 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 In the meantime, he was advised to remain hydrated and to return with any new or worsening symptoms. Lab Data 07/04/23 16:40 07/04/23 16:40 Radiology Impressions Chest X-Ray 07/04/23 17:09 IMPRESSION: No acute findings. Head CT 07/04/23 17:09 IMPRESSION: No acute intracranial abnormality. Laboratory Results WBC 7.77 10^3/uL (3.29-11.43) 07/04/23 16:40 RBC 5.22 10^6/uL (3.85-5.65) 07/04/23 16:40 Hgb 15.40 g/dL (11.27-16.99) 07/04/23 16:40 Hct 44.8 % (37-53) 07/04/23 16:40 MCV 85.8 fl (82-101) 07/04/23 16:40 MCH 29.5 pg (27-33) 07/04/23 16:40 MCHC 34.4 g/dL (30-55) 07/04/23 16:40 RDW 12.1 % (12.1-15.1) 07/04/23 16:40 Plt Count 301 10^3/cmm (157-399) 07/04/23 16:40 MPV 9.9 fL (7.4-10.4) 07/04/23 16:40 Neut % (Auto) 43.8 % 07/04/23 16:40 Lymph % (Auto) 42.6 % 07/04/23 16:40 Sargent % (Auto) 10.3 % 07/04/23 16:40 Eos % (Auto) 2.4 % 07/04/23 16:40 Baso % (Auto) 0.4 % 07/04/23 16:40 Neut # (Auto) 3.40 10^3/uL (1.8-7.7) 07/04/23 16:40 Lymph # (Auto) 3.3 10^3/uL (0.8-4.8) 07/04/23 16:40 Sargent # (Auto) 0.8 10^3/uL (0.2-0.9) 07/04/23 16:40 Eos # (Auto) 0.2 10^3/uL (0.0-0.8) 07/04/23 16:40 Baso # (Auto) 0.0 10^3/uL (0.0-0.1) 07/04/23 16:40 Nucleated RBC % (auto) 0 % 07/04/23 16:40 Nucleated RBCs # 0.0 /100WBC 07/04/23 16:40 Sodium 142 mmol/L (136-145) 07/04/23 16:40 Potassium 3.6 mmol/L (3.5-5.1) 07/04/23 16:40 Chloride 101 mmol/L (98-107) 07/04/23 16:40 Carbon Dioxide 27 mmol/L (22-29) 07/04/23 16:40 Anion Gap 17.6 (5-19) 07/04/23 16:40 BUN 18 mg/dL (6-20) 07/04/23 16:40 Creatinine 1.2 mg/dL (0.7-1.2) 07/04/23 16:40 GFR Calculation 62.6 mL/min (90-130) L 07/04/23 16:40 Glucose 135 mg/dL (65-115) H 07/04/23 16:40 Calculated Osmolality 298 mOsm/kg (285-295) H 07/04/23 16:40 Calcium 8.9 mg/dL (8.5-10.5) 07/04/23 16:40 Total Bilirubin 0.4 mg/dL (0.15-1.2) 07/04/23 16:40 AST 14 U/L (0-40) 07/04/23 16:40 ALT 12 U/L (0-41) 07/04/23 16:40 Alkaline Phosphatase 53 U/L (40-130) 07/04/23 16:40 Troponin T Gen 5 ng/L 8 ng/L (0-15) 07/04/23 16:40 Total Protein 7.2 g/dL (6.6-8.7) 07/04/23 16:40 Albumin 4.9 g/dL (3.5-5.2) 07/04/23 16:40 Globulin 2.3 g/dL (1.3-4.6) 07/04/23 16:40 EKG Data EKG 1: Interpretation: Sinus rhythm, rate of 93, left axis deviation, intraventricular conduction delay, nonspecific T wave changes, no STEMI. Computer generated interpretation: Chest X-Ray 07/04/23 17:09 IMPRESSION: No acute findings. Head CT 07/04/23 17:09 IMPRESSION: No acute intracranial abnormality. Discharge Plan Discharge Patient Disposition: Home Clinical Impression: Syncope Condition: Stable Prescriptions: No Action tramadol 50 mg tablet 50 mg PO Q6H PRN (Reason: Pain) oxycodone-acetaminophen [Percocet] 2.5-325 mg tablet 1 tab PO Q8H PRN (Reason: Pain) cyclobenzaprine 5 mg tablet 5 mg PO TID PRN (Reason: pain) gabapentin 100 mg capsule 100 mg PO DAILY fentanyl 12 mcg/hr patch 72 hour 1 patch transdermal Q72H ondansetron HCl [Zofran] 4 mg tablet 4 mg PO Q8H PRN (Reason: Nausea) sumatriptan succinate 25 mg tablet 25 mg PO Q2H PRN (Reason: Headache) Rx Instructions: do not exceed 8 doses per 24 hrs cholecalciferol (vitamin D3) 25 mcg (1,000 unit) capsule 25 mcg PO DAILY zolpidem 10 mg tablet PO ONCE celecoxib 200 mg capsule 200 mg PO BID Discharge Orders: Discharge ED (Routine); Ordered 07/04/23 Ordered By: Betty Ramon Referrals: Keyanna Reich MD [Primary Care Provider] - Discharge Diet: Usual diet Discharge Activity: Resume usual activity Patient Instructions: Opioid Safety, Pain Management Activity Restrictions/Additional Instructions: Follow-up with your primary care physician as soon as possible to get an outpatient Holter monitor. Continue taking your usual home medications. Maintain adequate fluid intake. Return if you develop any new or concerning symptoms. Coding Level of Care Code ED Senior Php Web Developer for Maria Dolores Mckeon
--- NOTE | 2023-07-04 17:09 | CTR_ITS ---
PROCEDURE INFORMATION: Exam: CT Head Without Contrast Exam date and time: 07/04/2023 5:39 PM Age: 58 years old Clinical indication: Syncope and collapse TECHNIQUE: Imaging protocol: Computed tomography of the head without contrast. Radiation optimization: All CT scans at this facility use at least one of these dose optimization techniques: automated exposure control; mA and/or kV adjustment per patient size (includes targeted exams where dose is matched to clinical indication); or iterative reconstruction. REPORTING DATA: Count of CT and Cardiac NM exams in prior 12 months: This patient has received [address] and 0 known cardiac nuclear medicine studies in the 12 months prior to the current study. COMPARISON: MR head wo/w con [id number] 03/04/2020 2:21 PM RADIATION DOSE METRICS: Total DLP (mGy-cm): 1029 FINDINGS: Brain: No hemorrhage. No edema. Mild diffuse cerebral atrophy and sequela of chronic small vessel ischemic disease. No mass effect. Cerebral ventricles: No ventriculomegaly. Paranasal sinuses: Visualized sinuses are unremarkable. No fluid levels. Mastoid air cells: Visualized mastoid air cells are well aerated. Bones/joints: Unremarkable. No acute fracture. Soft tissues: Unremarkable. CT/CT head wo con* [id number] IMPRESSION: No acute intracranial abnormality.
--- NOTE | 2023-07-04 17:09 | XRR_ITS ---
PROCEDURE INFORMATION: Exam: XR Chest Exam date and time: 07/04/2023 5:14 PM Age: 58 years old Clinical indication: Other: Syncope; Additional info: Syncopal episode TECHNIQUE: Imaging protocol: Radiologic exam of the chest. Views: 1 view. COMPARISON: CR XR chest 2V* [id number] 08/28/2019 4:13 PM FINDINGS: Lungs: Unremarkable. No consolidation. Pleural spaces: Unremarkable. No pleural effusion. No pneumothorax. Heart/Mediastinum: Unremarkable. No cardiomegaly. Diaphragm: There is mild elevation of the right hemidiaphragm. Bones/joints: There is cervical spine metallic hardware. No acute findings. XR/XR chest 1V portable [id number] IMPRESSION: No acute findings.
[2023-07-04] MEDS: sodium chloride 0.9% 1,000 ML 999 ML IV (17:26)
[2023-07-04 17:55] LABS: Basophils % 0.4 %; Eosinophils # 0.2 10^3/uL (0.0-0.8); Eosinophils % 2.4 %; Hematocrit 44.8 % (37-53); Lymphocytes # 3.3 10^3/uL (0.8-4.8); Lymphocytes % 42.6 %; Mean Corpuscular HGB Conc 34.4 g/dL (30-55); Mean Corpuscular Hemoglobin 29.5 pg (27-33); Mean Corpuscular Volume 85.8 fl (82-101); Mean Platelet Volume 9.9 fL (7.4-10.4); Monocytes # 0.8 10^3/uL (0.2-0.9); Monocytes % 10.3 %; Neutrophils % 43.8 %; Nucleated Red Blood Cells % 0 %; Platelet Count 301 10^3/cmm (157-399); Red Blood Count 5.22 10^6/uL (3.85-5.65); Red Cell Distribution Width 12.1 % (12.1-15.1); White Blood Count 7.77 10^3/uL (3.29-11.43)
[2023-07-04 18:14] LABS: Alanine Aminotransferase 12 U/L (0-41); Albumin Level 4.9 g/dL (3.5-5.2); Alkaline Phosphatase 53 U/L (40-130); Aspartate Amino Transferase 14 U/L (0-40); Blood Urea Nitrogen 18 mg/dL (6-20); Calcium 8.9 mg/dL (8.5-10.5); Carbon Dioxide 27 mmol/L (22-29); Chloride 101 mmol/L (98-107); Globulin 2.3 g/dL (1.3-4.6); Glomerular Filtration Rate 62.6 mL/min (90-130); Glucose 135 mg/dL (65-115); Osmolality Calculated 298 mOsm/kg (285-295); Sodium 142 mmol/L (136-145); Total Bilirubin 0.4 mg/dL (0.15-1.2); Total Protein 7.2 g/dL (6.6-8.7)
[2023-07-04 18:24] LABS: Anion Gap 17.6 (5-19); Potassium 3.6 mmol/L (3.5-5.1)
[2023-07-04 18:37] VITALS: BP 105/67; PULSE 81; RESP 15; O2SAT 96
[2023-07-04 19:12] LABS: Troponin T (5th) Once 8 ng/L (0-15)
[2023-07-04 19:48] VITALS: BP 105/67; PULSE 81; RESP 15; TEMP 36.9; O2SAT 96
== END 2023-07-04 19:49 | disposition home or self-care (01) ==
PROVIDERS: Emergency Provider Family Medicine; PCP Family Medicine
DX: R55 Syncope and collapse (principal)
CPT/HCPCS: 70450; 71045; 80053; 84484; 85025; 93005; 96360; 96361; 99284; J7030

== ENCOUNTER → 2023-11-28 15:33 | Outpatient (BNVA) | payer MEDICARE, MEDICAID, SELFPAY | PROVIDERS: PCP Family Medicine; Visit Provider Dermatology | DX: D48.5 Neoplasm of uncertain behavior of skin (principal); L57.0 Actinic keratosis; L59.0 Erythema ab igne [dermatitis ab igne]; D22.5 Melanocytic nevi of trunk; D22.39 Melanocytic nevi of other parts of face | CPT/HCPCS: 11102; 99203 ==

== ENCOUNTER → 2023-12-13 08:52 | Outpatient (BNVA) | payer MEDICARE, MEDICAID, SELFPAY | PROVIDERS: PCP Family Medicine; Visit Provider Dermatology | DX: N63.0 Unspecified lump in unspecified breast (principal); C43.59 Malignant melanoma of other part of trunk | CPT/HCPCS: 11603; 11604; 12032; 12034; 99212 ==

== ENCOUNTER → 2023-12-27 13:01 | Outpatient (BNVA) | payer MEDICARE, MEDICAID, SELFPAY | PROVIDERS: PCP Family Medicine; Visit Provider Dermatology | DX: D48.5 Neoplasm of uncertain behavior of skin (principal); D22.5 Melanocytic nevi of trunk; L81.4 Other melanin hyperpigmentation; Z48.02 Encounter for removal of sutures; L81.3 Cafe au lait spots | CPT/HCPCS: 11102; 99213 ==

== ENCOUNTER 2024-01-08 11:58 | Outpatient (CLI) | payer MEDICARE, MEDICAID, SELFPAY ==
--- NOTE | 2024-01-08 12:08 | MM_ITS ---
WS: [id number] BILATERAL 3D TOMOSYNTHESIS DIGITAL DIAGNOSTIC MAMMOGRAPHY WITH CAD CLINICAL INFORMATION: RT BR LUMP HISTORY: RIGHT breast lump COMPARISON: 2014 TECHNIQUE: Bilateral CC, MLO, and ML views. FINDINGS: Scattered fibroglandular densities bilaterally. Numerous bilateral punctate calcifications similar to previous. Palpable marker RIGHT breast. Subareolar parenchymal tissue RIGHT greater than LEFT likely due to gynecomastia. This is similar to 2014. Ultrasound of the palpable area of concern is pending ULTRASOUND BREAST BILATERAL TECHNIQUE: Ultrasound right breast focused area of concern. Ultrasound LEFT breast for comparison CLINICAL INFORMATION: RT BR LUMP FINDINGS: Ultrasound RIGHT breast area of concern near the areola. Shadowing gynecomastia deep to the areola. N o suspicious cystic or solid lesions in the area of concern. Similar-appearing but less prominent sha dowing gynecomastia subareolar LEFT breast for comparison. IMPRESSION: MM/[place] [id number] BI-RADS: 2-Benign FOLLOW UP: See Report
== END 2024-01-08 11:59 | disposition home or self-care (01) ==
LOC: RAD 11:59
PROVIDERS: PCP Family Medicine; Visit Provider Dermatology
DX: N63.41 Unspecified lump in right breast, subareolar (principal); N62 Hypertrophy of breast; R92.323 Mammographic fibroglandular density, bilateral breasts
CPT/HCPCS: 76642; 77062; G0279

== ENCOUNTER → 2024-03-28 13:30 | Outpatient (BNVA) | payer MEDICARE, MEDICAID, SELFPAY | PROVIDERS: PCP Family Medicine; Visit Provider Dermatology | DX: L81.4 Other melanin hyperpigmentation (principal); D22.5 Melanocytic nevi of trunk; D22.72 Melanocytic nevi of left lower limb, including hip; L81.3 Cafe au lait spots; N63.10 Unspecified lump in the right breast, unspecified quadrant; L73.8 Other specified follicular disorders; L59.0 Erythema ab igne [dermatitis ab igne]; L82.0 Inflamed seborrheic keratosis; D86.0 Sarcoidosis of lung; Z85.820 Personal history of malignant melanoma of skin | CPT/HCPCS: 17110; 99213 ==

== ENCOUNTER 2024-05-20 16:17 | Outpatient (CLI) | payer MEDICARE, MEDICAID, SELFPAY ==
--- NOTE | 2024-05-20 16:43 | XRR_ITS ---
PROCEDURE INFORMATION: Exam: XR Chest Exam date and time: 05/20/2024 4:47 PM Age: 59 years old Clinical indication: Condition or disease; Lung condition and disease; Other: Sarcoidosis; Additional info: Sarcoidosis, unspecified (d86.9) TECHNIQUE: Imaging protocol: Radiologic exam of the chest. Views: 2 views. COMPARISON: CR XR chest 1V portable [id number] 07/04/2023 5:14 PM FINDINGS: Lungs: Lungs are clear bilaterally. Pleural spaces: No pleural effusion. No pneumothorax. Heart/Mediastinum: The cardiac silhouette and mediastinal contours are unremarkable. Bones/joints: Postsurgical changes consistent with previous fusion in the lower cervical spine. Degenerative changes in the spine. XR/XR chest 2V* [id number] IMPRESSION: 1. No acute cardiopulmonary process. 2. Incidental/nonacute findings are listed in the report.
== END 2024-05-20 16:18 | disposition home or self-care (01) ==
LOC: RAD 16:24
PROVIDERS: PCP Family Medicine; Visit Provider Family Medicine
DX: D86.9 Sarcoidosis, unspecified (principal); M43.22 Fusion of spine, cervical region; M51.34 Other intervertebral disc degeneration, thoracic region
CPT/HCPCS: 71046

== ENCOUNTER → 2024-09-10 15:32 | Outpatient (BNVA) | payer MEDICARE, MEDICAID, SELFPAY | PROVIDERS: PCP Family Medicine; Visit Provider Nurse Practitioner Family | DX: L81.4 Other melanin hyperpigmentation (principal); D22.5 Melanocytic nevi of trunk; D22.72 Melanocytic nevi of left lower limb, including hip; L81.3 Cafe au lait spots; L59.0 Erythema ab igne [dermatitis ab igne]; L73.8 Other specified follicular disorders; Z85.820 Personal history of malignant melanoma of skin | CPT/HCPCS: 99213 ==

== ENCOUNTER 2025-01-25 19:25 | Emergency (ER) | payer MEDICARE, MEDICAID, SELFPAY ==
[2025-01-25 19:33] VITALS: BP 160/84; PULSE 62; RESP 14; TEMP 36.7; O2SAT 97
--- NOTE | 2025-01-25 19:55 | W.ED.EXTPRO ---
HPI - Extremity Problem General: Chief complaint: Extremity Injury, Lower Stated complaint: Fell Hurt R hip and hurt L shoulder Time Seen by Provider: 01/25/25 19:43 Source: patient Mode of arrival: wheelchair Limitations: no limitations History of Present Illness: 60yo male presents with significant other for evaluation of left shoulder and right hip/buttock pain. Patient's has had 3-4 falls since October. States that his right leg will give out on him. Patient reports that he has had fusion of bilateral SI joints as well as hardware in his lumbar spine and cervical spine. Patient states he did have left rotator cuff surgery about a year ago. Patient reports that as he was falling down the stairs yesterday, he did attempt to catch himself with his left arm by trying to grab the railing. He states he is having pain to the anterior shoulder area, but is still able to move his arm. Patient is able to make position changes and bear weight. He denies hitting his head, loss consciousness, neck pain, lower extremity weakness, any other concerns at this time. Associated symptoms: Deny chest pain or fever(s) Related Data Home Medications ?Medication ?Instructions ?Recorded ?Confirmed cholecalciferol (vitamin D3) 25 25 mcg PO DAILY 09/27/21 10/28/22 mcg (1,000 unit) capsule cyclobenzaprine 5 mg tablet 5 mg PO TID PRN pain 09/27/21 10/28/22 fentanyl 12 mcg/hr transdermal 1 patch transdermal Q72H 09/27/21 10/28/22 patch gabapentin 100 mg capsule 100 mg PO DAILY 09/27/21 10/28/22 ondansetron HCl 4 mg tablet 4 mg PO Q8H PRN Nausea 09/27/21 10/28/22 (Zofran) oxycodone-acetaminophen 2.5 mg-325 1 tab PO Q8H PRN Pain 09/27/21 10/28/22 mg tablet (Percocet) sumatriptan succinate 25 mg tablet 25 mg PO Q2H PRN Headache 09/27/21 10/28/22 tramadol 50 mg tablet 50 mg PO Q6H PRN Pain 09/27/21 10/28/22 celecoxib 200 mg capsule 200 mg PO BID 01/14/22 10/28/22 zolpidem 10 mg tablet PO ONCE 10/28/22 10/28/22 Allergies Allergy/AdvReac Type Severity Reaction Status Date / Time codeine Allergy ADR-Itching Verified 01/25/25 19:40 Review of Systems Const: Denies: fever(s), chills or body aches Card: Denies: chest pain Resp: Denies: dyspnea GI: Denies: vomiting Musc: Reports: extremity pain (left shoulder) and other (right hip/pelvis) PFS ED PFSH: Medical History Family history of colon cancer in mother History of kidney stones Hx of nephrolithotomy with removal of calculi Sarcoidosis Surgical History History of appendectomy History of arthroscopic knee surgery left History of fusion of cervical spine x2 History of hip surgery bilat hip surgery History of kidney surgery either 8-9 surgeries History of rotator cuff surgery rt History of spinal fusion l1-s5 Hx of colonoscopy with polypectomy Family History Other CAD (coronary artery disease) Cancer Hypertension Denies family history of Diabetes Dementia Chronic kidney disease (CKD) Lung disease Stroke Social History Smoking and tobacco/nicotine status: never used tobacco/nicotine Second hand smoke exposure: No Alcohol intake: never Substance/Drug Use: never Lives independently: Yes Household members: spouse and children Marital status: Physical Exam Const: COMMON NORMALS: no acute distress, patient oriented x3 and alert ORIENTATION/CONSCIOUSNESS: Yes awake OTHER: Patient is sitting upright on the stretcher in no acute distress. He is able to give history with assistance from significant other. He is interactive with exam appropriately. He is able to make position changes unassisted. Significant other is at bedside HENMT: COMMON NORMALS: normocephalic and atraumatic HEAD & SCALP: normocephalic and atraumatic Neck/C-Spine: COMMON NORMALS: full ROM Chest: CHEST: Yes Symmetrical chest wall rise Resp: COMMON NORMALS: normal respiratory effort, No use of accessory muscles and clear to auscultation bilaterally EFFORT & INSPECTION: Yes able to speak in complete sentences and Yes symmetric chest movement AUSCULTATION: clear to auscultation bilaterally Cardio: COMMON NORMALS: regular rate and regular rhythm RATE: regular rate RHYTHM: regular rhythm : COMMON NORMALS: No no CVA tenderness BLADDER/KIDNEY EXAM: No no CVA tenderness Back/Pelvis: COMMON NORMALS: negative for no CVA tenderness THORACIC SPINE/UPPER BACK: No thoracic spinal tenderness and No paraspinal muscle tenderness LUMBAR SPINE/LOWER BACK: No lumbar spinal tenderness and No paraspinal muscle tenderness Extremity: COMMON NORMALS: full ROM LEFT UPPER EXTREMITY: Yes shoulder joint Left shoulder joint: Yes palpation (mild tenderness to palpation) and No ROM Neuro: COMMON NORMALS: patient oriented x3 SENSORIUM/ORIENTATION: Yes alert Psych: COMMON NORMALS: cooperative Skin: RASHES: rashes noted (mid to low back, lacy patterned c/w erythema ab igne) Course Vital Signs: Vital signs: Vital Signs Temperature 98.1 F 01/25/25 19:33 Pulse Rate 64 01/25/25 22:13 Respiratory Rate 14 01/25/25 19:33 Blood Pressure 148/85 01/25/25 22:13 Pulse Oximetry 95 01/25/25 22:13 Oxygen Delivery Me thod Room Air 01/25/25 19:33 MDM - Extremity (Nontraumatic) Medical Decision Making 60yo male presents with significant other for evaluation of left shoulder and right hip/buttock pain. Patient's has had 3-4 falls since October. States that his right leg will give out on him. Patient reports that he has had fusion of bilateral SI joints as well as hardware in his lumbar spine and cervical spine. Patient states he did have left rotator cuff surgery about a year ago. Patient reports that as he was falling down the stairs yesterday, he did attempt to catch himself with his left arm by trying to grab the railing. He states he is having pain to the anterior shoulder area, but is still able to move his arm. Patient is able to make position changes and bear weight. He denies hitting his head, loss consciousness, neck pain, lower extremity weakness, any other concerns at this time. Patient is nontoxic in appearance. Vital signs are stable. X-ray of the shoulder with no acute findings. X-ray of the lumbar spine does show mild diffuse osteopenia as well as mild degenerative disc disease and spondylosis throughout the lumbar and visualized lower thoracic spine. X-ray of the pelvis does show mild osteoarthritis involving the hips bilaterally as well as subchondral sclerosis and small marginal spurs bilaterally. Discussed these findings and radiology reports were provided for patient and family. Advised that the weakness of the leg is likely related to the degenerative disc disease and spondylosis throughout the lumbar spine. Advised that the intermittent difficulty rotating his right hip/leg is likely related to the osteoarthritis of the hip, specifically the subchondral sclerosis and spurs. Patient does see a spinal surgeon at [facility] that he will follow-up with. Patient does also have a joint surgeon at [facility] that he will follow-up with for his shoulder and his hip. Recommend patient follow-up with his specialist as soon as possible. Return precautions provided. Patient and family state understanding and have no further questions or concerns at this time. Lab Data Radiology Impressions Lumbar Spine X-Ray 01/25/25 20:04 IMPRESSION: 1. Mild diffuse osteopenia. 2. Postsurgical changes at the L5-S1 level and bilateral sacroiliac joints. 3. Mild degenerative disc disease and spondylosis throughout the lumbar and visualized lower thoracic spine. Shoulder X-Ray 01/25/25 20:04 IMPRESSION: No acute findings.If there is persistent clinical concern, MRI may be helpful for further evaluation. Pelvis X-Ray 01/25/25 20:05 IMPRESSION: 1. Postsurgical changes at the L5-S1 level and bilateral sacroiliac joints. 2. Mild osteoarthritis involving the hips bilaterally. 3. No acute fracture detected. All radiology interpretation(s) finalized by discharge Discharge Plan Discharge Patient Disposition: Home Clinical Impression: Osteopenia of lumbar spine, Spondylosis of lumbar spine Osteoarthritis of both hips Qualifiers: Osteoarthritis type: unspecified Qualified Code(s): M16.0 - Bilateral primary osteoarthritis of hip DDD (degenerative disc disease), lumbar Qualifiers: Disc-related pain type: without discogenic back pain or lower extremity pain Qualified Code(s): M51.369 - Other intervertebral disc degeneration, lumbar region without mention of lumbar back pain or lower extremity pain Condition: Stable Prescriptions: No Action tramadol 50 mg tablet 50 mg PO Q6H PRN (Reason: Pain) oxycodone-acetaminophen [Percocet] 2.5-325 mg tablet 1 tab PO Q8H PRN (Reason: Pain) cyclobenzaprine 5 mg tablet 5 mg PO TID PRN (Reason: pain) gabapentin 100 mg capsule 100 mg PO DAILY fentanyl 12 mcg/hr patch 72 hour 1 patch transdermal Q72H ondansetron HCl [Zofran] 4 mg tablet 4 mg PO Q8H PRN (Reason: Nausea) sumatriptan succinate 25 mg tablet 25 mg PO Q2H PRN (Reason: Headache) Rx Instructions: do not exceed 8 doses per 24 hrs cholecalciferol (vitamin D3) 25 mcg (1,000 unit) capsule 25 mcg PO DAILY zolpidem 10 mg tablet PO ONCE celecoxib 200 mg capsule 200 mg PO BID Discharge Orders: Discharge ED (Routine); Ordered 01/25/25 Ordered By: Wislon Seymour Referrals: Keyanna Reich MD [Primary Care Provider] - Discharge Diet: Usual diet Discharge Activity: Increase activity as tolerated Activity Restrictions/Additional Instructions: You are provided with printouts of your imaging results today The spondylosis in the lower spine is likely contributing to the weakness of the right leg Please follow-up with your spine surgeon for further evaluation and likely MRI Please follow-up with your shoulder surgeon for reevaluation of the left shoulder after the fall Return to the emergency department if any further injury, rapid worsening symptoms, and as needed Print Language: Vincentian Coding Level of Care Code ED Fill Plant Operator for Maria Dolores Mckeon
--- NOTE | 2025-01-25 20:04 | XRR_ITS ---
PROCEDURE INFORMATION: Exam: XR Lumbosacral Spine Exam date and time: 01/25/2025 8:10 PM Age: 60 years old Clinical indication: Lumbago with sciatica; Right; Prior surgery; Surgery date: 6+ months; Surgery type: Lumbar fusion x 3; Lower back pain with RT hip pain post fall; Additional info: RT leg intermittent weakness TECHNIQUE: Imaging protocol: Radiologic exam of the lumbosacral spine. Views: 2 or 3 views. COMPARISON: CT abdomen pelvis con [id number] 08/12/2021 5:56 PM FINDINGS: Bones/joints: There is mild diffuse osteopenia. There are postsurgical changes at the L5-S1 level with fusion hardware in place. Orthopedic hardware is also seen projecting over the sacroiliac joints bilaterally. The hardware appears intact. No acute fracture is detected. There are mild degenerative changes throughout the lumbar and visualized lower thoracic spine. Soft tissues: Unremarkable. XR/XR lumbar spine 2-3V* [id number] IMPRESSION: 1. Mild diffuse osteopenia. 2. Postsurgical changes at the L5-S1 level and bilateral sacroiliac joints. 3. Mild degenerative disc disease and spondylosis throughout the lumbar and visualized lower thoracic spine.
--- NOTE | 2025-01-25 20:04 | XRR_ITS ---
PROCEDURE INFORMATION: Exam: XR Left Shoulder Exam date and time: 01/25/2025 8:10 PM Age: 60 years old Clinical indication: Pain; Shoulder; Left; Additional info: Lt shoulder pain post fall TECHNIQUE: Imaging protocol: Radiologic exam of the left shoulder. Views: 2 or more views. COMPARISON: MR shoulder LT wo con* [id number] 10/08/2021 10:09 AM FINDINGS: Bones/joints: There is normal bony alignment. No acute fracture is detected. Joint spaces are preserved. Soft tissues: Unremarkable. XR/XR shoulder LT min 2V* [id number] IMPRESSION: No acute findings.If there is persistent clinical concern, MRI may be helpful for further evaluation.
--- NOTE | 2025-01-25 20:05 | XRR_ITS ---
PROCEDURE INFORMATION: Exam: XR Pelvis Exam date and time: 01/25/2025 8:10 PM Age: 60 years old Clinical indication: Hip pain and pelvic pain; Right hip; Prior surgery; Surgery date: 6+ months; Surgery type: Lumbar surg; Additional info: Lower back pain with RT hip pain post fall TECHNIQUE: Imaging protocol: Radiologic exam of the pelvis. Views: 1 or 2 view. COMPARISON: CT abdomen pelvis con [id number] 08/12/2021 5:56 PM FINDINGS: Bones/joints: The pelvic ring is intact. There is hardware projecting over the L5-S1 and bilateral sacroiliac joints. The hardware appears intact. No acute fracture is detected. There is mild narrowing of the hip joints bilaterally with subchondral sclerosis and small marginal spurs. Soft tissues: Unremarkable. XR/XR pelvis 1-2V* [id number] IMPRESSION: 1. Postsurgical changes at the L5-S1 level and bilateral sacroiliac joints. 2. Mild osteoarthritis involving the hips bilaterally. 3. No acute fracture detected.
[2025-01-25 22:13] VITALS: BP 148/85; PULSE 64; O2SAT 95
== END 2025-01-25 22:14 | disposition home or self-care (01) ==
PROVIDERS: Emergency Provider Nurse Practitioner; PCP Family Medicine
DX: M85.88 Other specified disorders of bone density and structure, other site (principal); M47.816 Spondylosis without myelopathy or radiculopathy, lumbar region; M16.0 Bilateral primary osteoarthritis of hip; M51.369 Other intervertebral disc degeneration, lumbar region without mention of lumbar back pain or lower extremity pain
CPT/HCPCS: 72100; 72170; 73030; 99284

== ENCOUNTER → 2025-03-10 12:46 | Outpatient (BNVA) | payer MEDICARE, MEDICAID, SELFPAY | PROVIDERS: PCP Family Medicine; Visit Provider Nurse Practitioner Family | DX: S20.462A Insect bite (nonvenomous) of left back wall of thorax, initial encounter (principal); S20.461A Insect bite (nonvenomous) of right back wall of thorax, initial encounter; L81.4 Other melanin hyperpigmentation; D22.5 Melanocytic nevi of trunk; D22.72 Melanocytic nevi of left lower limb, including hip; L81.3 Cafe au lait spots; L59.0 Erythema ab igne [dermatitis ab igne]; Z08 Encounter for follow-up examination after completed treatment for malignant neoplasm; Z85.820 Personal history of malignant melanoma of skin; L57.0 Actinic keratosis; X58.XXXA Exposure to other specified factors, initial encounter | CPT/HCPCS: 17000; 99213 ==

== ENCOUNTER → 2025-09-08 13:53 | Outpatient (BNVA) | payer MEDICARE, MEDICAID, SELFPAY | PROVIDERS: PCP Family Medicine; Visit Provider Nurse Practitioner Family | DX: L81.4 Other melanin hyperpigmentation (principal); L59.0 Erythema ab igne [dermatitis ab igne]; L81.3 Cafe au lait spots; D22.5 Melanocytic nevi of trunk; D22.72 Melanocytic nevi of left lower limb, including hip; L73.8 Other specified follicular disorders; Z08 Encounter for follow-up examination after completed treatment for malignant neoplasm; Z85.820 Personal history of malignant melanoma of skin | CPT/HCPCS: 99213 ==